=== PATIENT | male | born 1985 | race Caucasian/White ===

== ENCOUNTER 2016-10-21 05:21 | Emergency (ER) | payer SELFPAY ==
[~2016-10-21] VITALS: Ht 177.8 cm; Wt 97.7 kg
[~2016-10-21 05:21] MED LIST: AMOXICILLIN 50500 MG PO; CEPHALEXIN500 M1 PO; DOXYCYCLINE 10100 MG PO; NO HOME MEDICATIONS; NORCO 325 MG-51 TAB PO; SEPTRA DS 8001 TAB PO; ULTRAM 50MG TAB50 MG PO; ULTRAM50 MG PO; ZITHROMAX Z PA250 MG PO
[2016-10-21 06:13] LABS: INFLUENZA B NEGATIVE
[2016-10-21] MEDS ORDERED: LEVAQUIN 5500 MG/TA1 PO ×2 (06:37→07:12)
[2016-10-21 06:49] VITALS: BP 127/87; PULSE 74; TEMP 98.1
== END 2016-10-21 07:15 | disposition home or self-care (01) ==
LOC: COL.ER 05:21
PROVIDERS: Emergency Medicine
DX: J18.9 Pneumonia, unspecified organism (principal); F17.210 Nicotine dependence, cigarettes, uncomplicated

== ENCOUNTER 2017-04-25 04:43 | Emergency (ER) | payer SELFPAY ==
[~2017-04-25] VITALS: Ht 180.3 cm; Wt 97.7 kg
[~2017-04-25 04:43] MED LIST changes: +LEVAQUIN 5500 MG/TA1 PO
[2017-04-25 04:45] VITALS: BP 152/96
[2017-04-25] MEDS ORDERED: CLEOCIN HC150 MG/CAP PO (05:01)
[2017-04-25 05:08] VITALS: PULSE 64; TEMP 98.1
== END 2017-04-25 05:06 | disposition home or self-care (01) ==
LOC: COL.ER 04:43
DX: K08.89 Other specified disorders of teeth and supporting structures (principal); F17.200 Nicotine dependence, unspecified, uncomplicated

== ENCOUNTER 2018-01-07 13:47 | Emergency (ER) | payer OTHER ==
[~2018-01-07] VITALS: Ht 180.3 cm; Wt 97.7 kg
[~2018-01-07 13:47] MED LIST changes: +CLEOCIN HC150 MG/CAP PO
[2018-01-07 13:49] VITALS: TEMP 96.8
[2018-01-07 15:51] LABS: BASO # 0.1 (0.0-0.2); BASO % 0.5 % (0.0-2.0); EOS # 0.1 (0.0-0.7); EOS % 0.7 % (0-4.0); GRAN # 10.9 (1.4-6.5); GRAN % 64.9 % (42.2-75.2); HEMATOCRIT 48.2 % (42.0-52.0); LYMPH # 4.5 (1.2-3.4); LYMPH % 26.8 % (20.0-51.0); MEAN CELL VOLUME 88 fl (80.0-100.0); MEAN CORPUSCULAR HEMOGLOBIN 31 pg (27.0-31.0); MEAN CORPUSCULAR HGB CONC 35 g/dl (33.0-37.0); MEAN PLATELET VOLUME 10.9 fl (7.4-10.4); MONO % 6.1 % (1.7-9.3); PLATELET COUNT 385 K/mm3 (130-400); RED BLOOD COUNT 5.51 M/mm3 (4.20-5.60); REDCELL DISTRIBUTION WIDTH-CV 13.6 % (11.5-14.5)
[2018-01-07 15:59] LABS: ALBUMIN 4.7 gm/dL (3.5-5.0); BILIRUBIN,TOTAL 1.6 mg/dL (0.0-1.0); CALCIUM 10.3 mg/dL (8.4-10.2); CREATININE, serum 1.27 mg/dL (0.66-1.25); POTASSIUM 3.8 mmol/L (3.4-5.0); TOTAL PROTEIN 8.6 gm/dL (6.4-8.2)
[2018-01-07 17:21] VITALS: BP 128/73; PULSE 105
== END 2018-01-07 17:25 | disposition short-term general hospital (02) ==
LOC: COL.ER 13:47
PROVIDERS: Family Medicine
DX: S62.102A Fracture of unspecified carpal bone, left wrist, initial encounter for closed fracture (principal); S62.201A Unspecified fracture of first metacarpal bone, right hand, initial encounter for closed fracture; S42.002A Fracture of unspecified part of left clavicle, initial encounter for closed fracture; Z23 Encounter for immunization; V29.40XA Motorcycle driver injured in collision with unspecified motor vehicles in traffic accident, initial encounter
CPT/HCPCS: J1170; J2405; J7030; Q4050

== ENCOUNTER 2018-10-17 11:53 | Emergency (ER) | payer SELFPAY ==
[~2018-10-17] VITALS: Ht 180.3 cm; Wt 90.0 kg
[2018-10-17 11:59] VITALS: BP 114/78; PULSE 92; TEMP 97.7
[2018-10-17] MEDS ORDERED: CEPHALEXIN500 M1 PO (12:20)
== END 2018-10-17 13:12 | disposition home or self-care (01) ==
LOC: COL.ER 11:53
DX: S61.512D Laceration without foreign body of left wrist, subsequent encounter (principal); F17.210 Nicotine dependence, cigarettes, uncomplicated; X58.XXXD Exposure to other specified factors, subsequent encounter

== ENCOUNTER 2019-02-26 17:36 | Emergency (ER) | payer SELFPAY ==
[~2019-02-26] VITALS: Ht 180.3 cm; Wt 97.7 kg
[2019-02-26 17:39] VITALS: TEMP 98.2
[2019-02-26] MEDS ORDERED: CEPHALEXIN500 M1 PO (19:48)
[2019-02-26 20:13] VITALS: BP 119/89; PULSE 88
== END 2019-02-26 20:13 | disposition home or self-care (01) ==
LOC: COL.ER 17:36
DX: S61.012A Laceration without foreign body of left thumb without damage to nail, initial encounter (principal); S61.211A Laceration without foreign body of left index finger without damage to nail, initial encounter; F17.210 Nicotine dependence, cigarettes, uncomplicated; W26.8XXA Contact with other sharp object(s), not elsewhere classified, initial encounter

== ENCOUNTER 2019-03-08 18:27 | Emergency (ER) | payer SELFPAY ==
[2019-03-08 18:32] VITALS: BP 128/85; PULSE 85; TEMP 98.6
== END 2019-03-08 19:30 | disposition home or self-care (01) ==
LOC: COL.ER 18:27
DX: S61.211D Laceration without foreign body of left index finger without damage to nail, subsequent encounter (principal); X58.XXXD Exposure to other specified factors, subsequent encounter

== ENCOUNTER 2019-08-16 17:52 | Emergency (ER) | payer SELFPAY ==
[~2019-08-16] VITALS: Ht 180.3 cm; Wt 87.7 kg
[2019-08-16 18:04] VITALS: TEMP 98.3
[2019-08-16 18:55] LABS: COLLECTION METHOD CLEAN CATCH
[2019-08-16 18:59] LABS: BASO % 0.5 % (0.0-2.0); EOS # 0.1 (0.0-0.7); EOS % 1.4 % (0-4.0); GRAN # 2.1 (1.4-6.5); GRAN % 37.5 % (42.2-75.2); HEMATOCRIT 46.5 % (42.0-52.0); HEMOGLOBIN 15.8 g/dl (13.5-18.0); LYMPH # 2.6 (1.2-3.4); LYMPH % 46.6 % (20.0-51.0); MEAN CELL VOLUME 89 fl (80.0-100.0); MEAN CORPUSCULAR HEMOGLOBIN 30 pg (27.0-31.0); MEAN CORPUSCULAR HGB CONC 34 g/dl (33.0-37.0); MEAN PLATELET VOLUME 10.2 fl (7.4-10.4); MONO # 0.8 (0.1-0.6); MONO % 13.8 % (1.7-9.3); PLATELET COUNT 298 K/mm3 (130-400); RED BLOOD COUNT 5.23 M/mm3 (4.20-5.60); REDCELL DISTRIBUTION WIDTH-CV 13.5 % (11.5-14.5)
[2019-08-16 19:02] LABS: MUCOUS Present /lpf; PH 5 (5-8); SQUAMOUS EPITHELIAL None Seen /hpf; URINE APPEARANCE Clear; URINE BACTERIA Rare /hpf; URINE BILIRUBIN Negative (NEGATIVE); URINE BLOOD Negative (NEGATIVE); URINE COLOR Yellow; URINE GLUCOSE Negative (NEGATIVE); URINE KETONE Negative (NEGATIVE); URINE LEUKOCYTE ESTERASE Negative (NEGATIVE); URINE NITRATE Negative (NEGATIVE); URINE PROTEIN(semi-quant) Negative (NEGATIVE); URINE UROBILINOGEN Negative (NEGATIVE)
[2019-08-16 19:15] LABS: ALBUMIN 4.6 gm/dL (3.5-5.0); BILIRUBIN,TOTAL 0.5 mg/dL (0.0-1.0); C-REACTIVE PROTEIN 0.7 mg/dL (0.0-0.9); CALCIUM 9.3 mg/dL (8.4-10.2); CREATININE, serum 0.95 (0.66-1.25); POTASSIUM 4.4 mmol/L (3.4-5.0); TOTAL PROTEIN 7.5 gm/dL (6.4-8.2)
[2019-08-16 20:13] VITALS: BP 121/57; PULSE 72
== END 2019-08-16 20:13 | disposition home or self-care (01) ==
LOC: COL.ER 17:52
PROVIDERS: Emergency Medicine
DX: R10.9 Unspecified abdominal pain (principal); Z87.442 Personal history of urinary calculi
CPT/HCPCS: J1885; J2405; J3010; J7030; Q9967

== ENCOUNTER 2020-04-05 07:15 | Emergency (ER) | payer SELFPAY ==
[~2020-04-05] VITALS: Ht 180.3 cm; Wt 87.3 kg
[2020-04-05 07:40] VITALS: BP 130/83; TEMP 98.8
[2020-04-05 08:09] LABS: BASO # 0.1 (0.0-0.2); BASO % 0.3 % (0.0-2.0); EOS # 0.1 (0.0-0.7); GRAN # 10.8 (1.4-6.5); HEMATOCRIT 41.6 % (42.0-52.0); HEMOGLOBIN 14.2 g/dl (13.5-18.0); LYMPH # 2.1 (1.2-3.4); LYMPH % 14.7 % (20.0-51.0); MEAN CELL VOLUME 89 fl (80.0-100.0); MEAN CORPUSCULAR HEMOGLOBIN 30 pg (27.0-31.0); MEAN CORPUSCULAR HGB CONC 34 g/dl (33.0-37.0); MEAN PLATELET VOLUME 10.1 fl (7.4-10.4); MONO # 1.3 (0.1-0.6); MONO % 8.7 % (1.7-9.3); PLATELET COUNT 374 K/mm3 (130-400); RED BLOOD COUNT 4.67 M/mm3 (4.20-5.60); REDCELL DISTRIBUTION WIDTH-CV 13.2 % (11.5-14.5)
[2020-04-05 08:15] LABS: ALBUMIN 4.4 gm/dL (3.5-5.0); BILIRUBIN,TOTAL 0.9 mg/dL (0.0-1.0); CALCIUM 9.4 mg/dL (8.4-10.2); CREATININE, serum 0.92 (0.66-1.25); POTASSIUM 4.4 mmol/L (3.4-5.0); TOTAL PROTEIN 7.7 gm/dL (6.4-8.2)
[2020-04-05] MEDS ORDERED: AMOXICILLIN 8751 TAB PO (08:30)
[2020-04-05 09:05] VITALS: PULSE 74
== END 2020-04-05 09:05 | disposition home or self-care (01) ==
LOC: COL.ER 07:15
PROVIDERS: Emergency Medicine
DX: J32.9 Chronic sinusitis, unspecified (principal); F17.210 Nicotine dependence, cigarettes, uncomplicated; Z20.828 Contact with and (suspected) exposure to other viral communicable diseases
CPT/HCPCS: J7030

== ENCOUNTER 2020-05-16 14:25 | Emergency (ER) | payer SELFPAY ==
[~2020-05-16] VITALS: Ht 180.3 cm; Wt 88.6 kg
[~2020-05-16 14:25] MED LIST changes: +AMOXICILLIN 8751 TAB PO
[2020-05-16 14:34] VITALS: BP 134/86; TEMP 98.6
[2020-05-16] MEDS ORDERED: NORCO 325 MG-7.1 TAB PO (17:14)
[2020-05-16 17:30] VITALS: PULSE 62
== END 2020-05-16 17:33 | disposition home or self-care (01) ==
LOC: COL.ER 14:25
DX: S20.211A Contusion of right front wall of thorax, initial encounter (principal); F17.210 Nicotine dependence, cigarettes, uncomplicated; Z87.442 Personal history of urinary calculi; W01.198A Fall on same level from slipping, tripping and stumbling with subsequent striking against other object, initial encounter; Y92.59 Other trade areas as the place of occurrence of the external cause; Y99.0 Civilian activity done for income or pay

== ENCOUNTER 2021-06-02 19:41 | Emergency (ER) | payer SELFPAY ==
[~2021-06-02] VITALS: Ht 180.3 cm; Wt 90.9 kg
[~2021-06-02 19:41] MED LIST changes: +NORCO 325 MG-7.1 TAB PO
[2021-06-02] MEDS ORDERED: CEPHALEXIN500 M1 PO (20:36)
[2021-06-02 20:44] VITALS: BP 128/96; PULSE 74; TEMP 98.5
== END 2021-06-02 20:44 | disposition home or self-care (01) ==
LOC: COL.ER 19:41
DX: S01.81XA Laceration without foreign body of other part of head, initial encounter (principal); W31.2XXA Contact with powered woodworking and forming machines, initial encounter